=== PATIENT | male | born 1965 | race African-American/Black ===

== ENCOUNTER 2024-11-22 14:28 | Outpatient (CLI) | payer OTHER, MEDICAID | END 2024-11-22 14:29 | disposition home or self-care (01) | LOC: CSHWCC 14:28 | PROVIDERS: ATTEND Nurse Practitioner Family | DX: L97.511 Non-pressure chronic ulcer of other part of right foot limited to breakdown of skin (principal) | CPT/HCPCS: 11042 ==

== ENCOUNTER 2024-12-18 15:04 | Outpatient (CLI) | payer OTHER | END 2024-12-18 15:05 | disposition home or self-care (01) | LOC: CSHWCC 15:04 | PROVIDERS: ATTEND Nurse Practitioner Family | DX: L97.511 Non-pressure chronic ulcer of other part of right foot limited to breakdown of skin (principal) | CPT/HCPCS: 11042 ==

== ENCOUNTER 2024-12-25 13:05 | Outpatient (CLI) | payer OTHER | END 2024-12-25 13:06 | disposition home or self-care (01) | LOC: CSHWCC 13:05 | PROVIDERS: ATTEND Nurse Practitioner Family | DX: L97.511 Non-pressure chronic ulcer of other part of right foot limited to breakdown of skin (principal) | CPT/HCPCS: 11042 ==

== ENCOUNTER 2025-01-15 09:25 | Outpatient (CLI) | payer OTHER, MEDICAID | END 2025-01-15 09:26 | disposition home or self-care (01) | LOC: CSHWCC 09:25 | PROVIDERS: ATTEND Nurse Practitioner Family | DX: L97.511 Non-pressure chronic ulcer of other part of right foot limited to breakdown of skin (principal); I73.9 Peripheral vascular disease, unspecified | CPT/HCPCS: 11042 ==

== ENCOUNTER 2025-02-11 10:13 | Outpatient (CLI) | payer OTHER | END 2025-02-11 10:14 | disposition home or self-care (01) | LOC: CSHWCC 10:13 | PROVIDERS: ATTEND Nurse Practitioner Family | DX: L97.511 Non-pressure chronic ulcer of other part of right foot limited to breakdown of skin (principal); I73.9 Peripheral vascular disease, unspecified | CPT/HCPCS: 11042 ==

== ENCOUNTER 2025-03-27 12:33 | Outpatient (CLI) | payer OTHER, MEDICAID | END 2025-03-27 12:34 | disposition home or self-care (01) | LOC: CSHWCC 12:33 | PROVIDERS: ATTEND Nurse Practitioner Family | DX: L97.511 Non-pressure chronic ulcer of other part of right foot limited to breakdown of skin (principal); I73.9 Peripheral vascular disease, unspecified | CPT/HCPCS: 11042; 99215; G0463 ==

== ENCOUNTER 2025-04-17 10:11 | Outpatient (CLI) | payer OTHER, MEDICAID | END 2025-04-17 10:12 | disposition home or self-care (01) | LOC: CSHWCC 10:11 | PROVIDERS: ATTEND Nurse Practitioner Family | DX: I70.203 Unspecified atherosclerosis of native arteries of extremities, bilateral legs (principal); L97.511 Non-pressure chronic ulcer of other part of right foot limited to breakdown of skin; L60.0 Ingrowing nail | CPT/HCPCS: 11042 ==

== ENCOUNTER 2025-05-01 11:02 | Outpatient (CLI) | payer OTHER | END 2025-05-01 11:03 | disposition home or self-care (01) | LOC: CSHWCC 11:02 | PROVIDERS: ATTEND Nurse Practitioner Family | DX: L97.511 Non-pressure chronic ulcer of other part of right foot limited to breakdown of skin (principal); I70.203 Unspecified atherosclerosis of native arteries of extremities, bilateral legs; L60.0 Ingrowing nail | CPT/HCPCS: 11042; 97597 ==

== ENCOUNTER 2025-05-07 13:05 | Outpatient (CLI) | payer OTHER | END 2025-05-07 13:06 | disposition home or self-care (01) | LOC: CSHWCC 13:05 | PROVIDERS: ATTEND Nurse Practitioner Family | DX: L89.623 Pressure ulcer of left heel, stage 3 (principal); I70.203 Unspecified atherosclerosis of native arteries of extremities, bilateral legs; L97.522 Non-pressure chronic ulcer of other part of left foot with fat layer exposed; L97.512 Non-pressure chronic ulcer of other part of right foot with fat layer exposed | CPT/HCPCS: 97597 ==

== ENCOUNTER 2025-05-14 13:15 | Outpatient (CLI) | payer OTHER | END 2025-05-14 13:16 | disposition home or self-care (01) | LOC: CSHWCC 13:15 | PROVIDERS: ATTEND Nurse Practitioner Family | DX: L89.623 Pressure ulcer of left heel, stage 3 (principal); I70.245 Atherosclerosis of native arteries of left leg with ulceration of other part of foot; I70.235 Atherosclerosis of native arteries of right leg with ulceration of other part of foot; L97.522 Non-pressure chronic ulcer of other part of left foot with fat layer exposed; L97.512 Non-pressure chronic ulcer of other part of right foot with fat layer exposed ==